=== PATIENT | female | born 1965 | race Caucasian/White ===

== ENCOUNTER → 2017-06-03 | Outpatient (CLI) | payer OTHER ==
--- NOTE | 2017-06-03 10:34 | RAD ---
EXAM DESCRIPTION: Shoulder,Left 2 or More Views CLINICAL HISTORY: 51 years Female, SHOULDER PAIN COMPARISON: None. FINDINGS: 4 views of the left shoulder show no acute fracture or malalignment. The left AC and glenohumeral joints are fairly well-maintained. No apparent left-sided rib fracture. The soft tissues are unremarkable. IMPRESSION: Negative exam. Electronically signed by: Chivo Sharp MD 06/03/2017 10:33 AM [facility]
== END | disposition home or self-care (01) ==
LOC: RAD 08:55
PROVIDERS: ATTEND Orthopaedic Surgery
DX: M25.512 Pain in left shoulder (principal)

== ENCOUNTER → 2018-02-24 | Outpatient (CLI) | payer OTHER ==
--- NOTE | 2018-02-26 07:57 | MAM ---
EXAM DESCRIPTION: 3D Screening BILATERAL : Digital Mammography. CLINICAL HISTORY: 52 years Female SCREENING . No complaints. No personal history or family history of breast cancer. Postmenopausal 3 years. Childbirth. No HRT.. Lifetime risk of developing breast cancer (Tyrer-Cuzick model)(%): 8.8 COMPARISON: 2-D digital screening bilateral study 12/19/2015 TECHNIQUE: Bilateral CC and MLO projection full-field images, Digital tomosynthesis mammographic technique. Bilateral digital 2-D full-field MLO images. CAD not utilized. FINDINGS: The breast parenchymal density pattern is: Heterogeneously dense breast tissue, which may obscure small masses. No skin thickening or nipple retraction. Small right axillary lymph node. No new focal, stellate mass or density, focal asymmetry , and no suspicious microcalcifications bilaterally. Stable mammograms compared to prior study. Taking into account, differences in mammographic technique. IMPRESSION: Benign exam. BIRAD CATEGORY: 2 BENIGN FINDINGS. RECOMMENDATIONS: FOLLOW UP: Routine digital bilateral screening, one year interval from February 2018. Written communication explaining the IMPRESSION and follow-up, will be mailed to the patient and referring health care provider. According to the [employer], yearly mammograms are recommended starting at age 40 and continuing as long as a woman is in good health. Any breast change noted on a breast self-exam should be reported promptly to the patient's healthcare provider. Breast MRI is recommended for women with an approximately 20-25% or greater lifetime risk of breast cancer, including women with a strong family history of breast or ovarian cancer and women who have been treated for Hodgkin's disease. A negative mammographic report should not delay tissue diagnosis in patients with significant clinical history or physical findings. Extremely dense breast tissue limits the sensitivity of digital mammography. Electronically signed by: Lauro De La Paz MD 02/26/2018 7:55 AM CDT
== END ==
LOC: MAMMO 08:00
PROVIDERS: ATTEND Family Medicine
DX: Z12.31 Encounter for screening mammogram for malignant neoplasm of breast (principal)

== ENCOUNTER 2018-06-25 05:34 | Day surgery (SDC) | payer OTHER ==
[2018-06-25] MEDS ORDERED: LACTATED RINGERS 0 ML ONE (07:08)
[2018-06-25] MEDS ORDERED: LACTATED RINGERS 1,000 ML ONE (07:16)
[2018-06-25] MEDS ORDERED: MIDAZOLAM INJ 2 MG/2 ML VIAL ONE (07:37)
[2018-06-25] MEDS ORDERED: fentaNYL CITRATE INJ 50 MCG/ML AMP ONE (07:38)
[2018-06-25 08:00] VITALS: O2SAT 100
--- NOTE | 2018-06-25 09:10 | OP ---
DATE OF PROCEDURE: 06/25/18 PREOPERATIVE DIAGNOSIS: 1. Colorectal cancer screening. POSTOPERATIVE DIAGNOSIS: 1. Colonic polyp. PROCEDURE: 1. Colonoscopy with polypectomy. SURGEON: Jaden Jaffe MD ANESTHESIA: Monitored anesthesia care. ESTIMATED BLOOD LOSS: Less than 5 mL. COMPLICATIONS: None. PROCEDURE: The patient was placed in the left lateral decubitus position. A time-out was performed. After deep sedation was achieved, the Olympus adult colonoscope was inserted through the anus and into the rectum and advanced to the cecum under direct visualization with ease. The terminal ileum was intubated. The endoscope was then progressively withdrawn and the total colonic lumen evaluated. Retroflexion was performed in the rectum. The patient's bowel preparation was good. FINDINGS: 1. A single 5 mm sessile polyp was seen in the descending colon. This polyp was removed with a cold snare and retrieved for histology. 2. The remainder of the colonoscopy was unremarkable to the terminal ileum. IMPRESSION: 1. Descending colon polyp. RECOMMENDATIONS: 1. Okay to discharge home once the patient meets discharge criteria. 2. Resume prior diet. 3. Resume home medications. 4. Increase dietary fiber. 5. Continue MiraLAX. 6. Repeat colonoscopy in 5 to 10 years based on pathology results. 7. Followup in GI clinic with Dr. Jaffe as needed. 8. Followup with referring physician as previously scheduled. #[id number] [facility]
[2018-06-25 09:39] VITALS: TEMP 96.6
[2018-06-25 09:43] VITALS: BP 118/69
[2018-06-25] MEDS ORDERED: PROPOFOL 200 MG/20 ML VIAL IV ONE (10:00)
== END 2018-06-25 09:28 | disposition home or self-care (01) ==
LOC: AMB 05:34
PROVIDERS: ATTEND Internal Medicine Gastroenterology
DX: Z12.11 Encounter for screening for malignant neoplasm of colon (principal); K63.5 Polyp of colon; G25.81 Restless legs syndrome; Z90.710 Acquired absence of both cervix and uterus; Z88.0 Allergy status to penicillin; Z88.1 Allergy status to other antibiotic agents; Z88.8 Allergy status to other drugs, medicaments and biological substances; Z79.899 Other long term (current) drug therapy
CPT/HCPCS: 00812; 45385; J2250; J3010; J3490; J7120

== ENCOUNTER → 2019-12-15 | Outpatient (CLI) | payer OTHER ==
--- NOTE | 2019-12-15 11:42 | MRI ---
EXAM DESCRIPTION: Brain w/oContrast CLINICAL HISTORY: 54 years, Female, HEADACHE COMPARISON: Head CT February 25, 2008 TECHNIQUE: Multiplanar multi sequence images of the brain were obtained without gadolinium contrast. FINDINGS: Diffusion-weighted images show no diffusion restriction. Midline structures, including the corpus callosum, pituitary and brainstem, are unremarkable. The ventricles are of normal size and configuration, and there is no intraventricular mass. Physiologic vascular flow voids are noted. The internal auditory canals and cerebellopontine angles are unremarkable. There are no extra-axial fluid collections. No vu or white matter signal abnormalities in the cerebral hemispheres. There is no posterior fossa lesion. Visualized paranasal sinuses and orbits are unremarkable. There is no calvarial lesion. IMPRESSION: Negative exam. No mass or other intracranial abnormality to explain headache. Electronically signed by: Chivo Sharp MD 12/15/2019 11:40 AM CDT
== END ==
LOC: MRI 09:02
PROVIDERS: ATTEND Family Medicine
DX: R51 Headache (principal)

== ENCOUNTER → 2019-12-31 | Outpatient (CLI) | payer OTHER ==
--- NOTE | 2020-01-01 16:27 | MAM ---
EXAM DESCRIPTION: 3D Screening BILATERAL : Digital Mammography. CLINICAL HISTORY: 54 years Female screening . No complaints. Remote family history of breast cancer. Menarche age 18. Childbirth age 25. Menopause age 50. No HRT. Lifetime risk of developing breast cancer (Tyrer-Cuzick model)(%): 8.5. COMPARISON: Bilateral screening digital breast tomosynthesis February 2018 and 2-D digital screening bilateral mammography December 2015. TECHNIQUE: Bilateral CC and MLO projection full-field images, digital tomosynthesis mammographic technique. Bilateral digital 2-D full-field MLO images. CAD available for 2-D images. FINDINGS: The breast parenchymal density pattern is: Heterogeneously dense breast tissue, which may obscure small masses. No skin thickening or nipple retraction. No new focal, stellate mass or density, focal asymmetry , and no suspicious microcalcifications bilaterally Stable mammograms compared to prior study. IMPRESSION: No suspicious or significant imaging findings. BI-RADS CATEGORY: 1 - NEGATIVE RECOMMENDATIONS: FOLLOW UP: Routine digital bilateral screening, one year interval from December 2019. Written communication explaining the findings and follow-up, will be mailed to the patient and referring health care provider. According to the [employer], yearly mammograms are recommended starting at age 40 and continuing as long as a woman is in good health. Any breast change noted on a breast self-exam should be reported promptly to the patient's healthcare provider. Breast MRI is recommended for women with an approximately 20-25% or greater lifetime risk of breast cancer, including women with a strong family history of breast or ovarian cancer and women who have been treated for Hodgkin's disease. A negative mammographic report should not delay tissue diagnosis in patients with significant clinical history or physical findings. Extremely dense breast tissue limits the sensitivity of digital mammography. Electronically signed by: Lauro De La Paz MD 01/01/2020 4:25 PM CDT
== END ==
LOC: MAMMO 16:30
PROVIDERS: ATTEND Family Medicine
DX: Z12.31 Encounter for screening mammogram for malignant neoplasm of breast (principal)